=== PATIENT | female | born 1980 | race Caucasian/White ===

== ENCOUNTER 2017-12-07 02:38 | Emergency (ER) | payer BC ==
[~2017-12-07] VITALS: Ht 175.3 cm; Wt 68.0 kg
[~2017-12-07 02:38] MED LIST: CLON0.5T PO; DICL75 PO; DUEX800T; HYDR7.5T32 OR; MISCCAP PO; ORPH100T PO; PROM25SU8 PO; PROM25TA5 PO; TAB-TAB PO; TIZA2CAP PO
[2017-12-07 02:41] VITALS: BP 123/70; PULSE 121; RESP 18; TEMP 98.2; O2SAT 96
[2017-12-07 03:02] VITALS: BP 134/67; PULSE 78; RESP 18; O2SAT 98
[2017-12-07] MEDS ORDERED: ACETAMINOPHEN 325 MG TAB PO ONE (03:15)
[2017-12-07] MEDS ORDERED: ONDANSETRON HCL 4 MG/2 ML VIAL IV PUSH ONE (03:15)
[2017-12-07] MEDS ORDERED: SODIUM CHLOR 0.9% 1000 ML INJ 1,000 ML IV ONE (03:15)
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
[2017-12-07 03:41] LABS: AUTOMATED NEUTROPHIL # 11.4 TH/MM3 (1.8-7.7); BASOPHIL % 0.1 % (0.0-2.0); EOSINOPHIL % 0.4 % (0.0-4.0); HEMATOCRIT 37.4 % (35.0-46.0); HEMOGLOBIN 12.5 GM/DL (11.6-15.3); LYMPH % 6.6 % (9.0-44.0); LYMPHOCYTE # 0.8 TH/MM3 (1.0-4.8); MEAN CORPUSCULAR HEMOGLOBIN 30.2 PG (27.0-34.0); MEAN CORPUSCULAR HGB CONC 33.5 % (32.0-36.0); MEAN PLATELET VOLUME 9.1 FL (7.0-11.0); MONO % 2.3 % (0.0-8.0); MONOCYTE # 0.3 TH/MM3 (0-0.9); NEUT % 90.6 % (16.0-70.0); PLATELET COUNT 205 TH/MM3 (150-450); RED BLOOD COUNT 4.16 MIL/MM3 (4.00-5.30); RED CELL DISTRIBUTION WIDTH 13.2 % (11.6-17.2); WHITE BLOOD COUNT 12.6 TH/MM3 (4.0-11.0)
--- NOTE | 2017-12-07 03:42 | RADRPT ---
EXAM DATE/TIME: 12/07/2017 03:29 [facility] COMPARISON: No previous studies available for comparison. INDICATIONS : Cough. MEDICAL HISTORY : None. SURGICAL HISTORY : None. ENCOUNTER: Initial ACUITY: 1 day PAIN SCORE: 0/10 LOCATION: Bilateral chest FINDINGS: A single view of the chest demonstrates the lungs to be symmetrically aerated without evidence of mas s, infiltrate or effusion. The cardiomediastinal contours are unremarkable. Osseous structures are intact. CONCLUSION: No acute disease. Deondre Washburn MD on December 07, 2017 at 3:39 Board Certified Radiologist. This report was verified electronically.
[2017-12-07 03:45] LABS: BILIRUBIN, URINE NEG (NEG); BLOOD, URINE NEG (NEG); GLUCOSE,URINE NEG (NEG); KETONE, URINE NEG (NEG); MUCUS URINE FEW /lpf (OCC); NITRITE,URINE NEG (NEG); SQUAMOUS EPITHELIAL CELL URINE 2 /hpf (0-5); URINE COLOR LIGHT-YELLOW (YELLW/STRAW); URINE LEUKOCYTE ESTERASE NEG (NEG)
[2017-12-07 04:08] LABS: ALT (GPT) 26 U/L (10-53); AST (GOT) 22 U/L (15-37); BICARBONATE 25.3 MEQ/L (21.0-32.0); BLOOD UREA NITROGEN 17 MG/DL (7-18); CALCIUM 8.7 MG/DL (8.5-10.1); CHLORIDE 108 MEQ/L (98-107); CREATININE 0.75 MG/DL (0.50-1.00); GLOMERULAR FILTRATION RATE 87 ML/MIN (>89); GLUCOSE,RANDOM 96 MG/DL (74-106); SODIUM (NA) 141 MEQ/L (136-145)
[2017-12-07 04:10] LABS: ALKALINE PHOSPHATASE 60 U/L (45-117); TOTAL BILIRUBIN ADULT 0.5 MG/DL (0.2-1.0); TOTAL PROTEIN 7.6 GM/DL (6.4-8.2)
[2017-12-07] MEDS ORDERED: OSEL75 PO (04:12)
[2017-12-07] MEDS ORDERED: ZOFR4TAB PO (04:13)
[2017-12-07 04:16] VITALS: O2SAT 99
[2017-12-07] MEDS ORDERED: diphenhydrAMINE HCL 25 MG CAP PO ONE (04:30)
== END 2017-12-07 04:54 | disposition home or self-care (01) ==
LOC: NEPE 02:38
DX: R53.1 Weakness (principal)
CPT/HCPCS: 71045; 80053; 81001; 83605; 85025; 87040; 87804; 96361; 96374; 99284; J2405; J7030